=== PATIENT | male | born 1935 | race Two or more races ===

== ENCOUNTER 2020-10-23 10:43 | Emergency (ER) | payer OTHER, SELFPAY ==
--- NOTE | ~2020-10-23 | XR_ITS ---
EXAMINATION: XR hand LT min 3V DATE: 10/23/2020 11:18 INDICATION: Metacarpal pain at the left hand post fall TECHNIQUE: Posteroanterior, oblique and lateral views of the left hand were obtained. COMPARISON: None. FINDINGS: Bone alignment is normal. No fracture. 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 IMPRESSION: 1. 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 No acute osseous abnormality. Reviewed, dictated and finalized at location A. [facility] [employer] [facility] IMPRESSION: 1. 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 No acute osseous abnormalit y.
[2020-10-23 10:56] VITALS: BP 136/67; PULSE 77; RESP 18; TEMP 36.3; O2SAT 97
--- NOTE | 2020-10-23 11:15 | ED.GENADULT ---
HPI - General Adult General Chief complaint: Extremity Injury, Upper Stated complaint: Fall Time Seen by Provider: 10/23/20 11:13 Source: patient and RN notes reviewed Mode of arrival: ambulatory Limitations: no limitations History of Present Illness HPI narrative: 85-year-old [place] male presents with left hand pain and swelling for 1 day. Shadi reports it was ice on sidewalk while walking and he took a fall landing on rear-end, now has LT hand pain and swelling. Tylenol last this morning at 06:00 with relief. No numbness or tingling. No radiation of pain. No loss of mobility. Exacerbating factors consist of movement. The relieving factors is immobility and OTC pain medication. Dominant hand is the RIGHT HAND. Shadi reports slightly hitting head with fall. Denies loss of consciousness, seizure activity, syncopal episode, blurred vision, changes in vision, or dizziness. No nausea or vomiting. Tolerating po intake well. No suspected abuse. Remains active. The patient reports he have not been diagnosed with COVID-19. The patient reports he is not waiting for the results of a COVID-19 lab test. The patient reports he do not have fever, chills, weakness, or fatigue. The patient reports he do not have a new or worsening cough or shortness of breath. Denies chest pain. The patient reports he do not have any rhinorrhea, congestion, loss of taste, sore throat, abdominal pain, and diarrhea. Denies recent traveling. Denies concerns for COVID-19 or exposures been home with limited outdoor exposure except for essential household needs and return home. At this time, patient is not suspected of having COVID-19. Some parts of this dictation were generated by voice recognition software and may contain typographical and/or grammatical inaccuracies. Related Data Home Medications Medication Instructions Recorded Confirmed atorvastatin 20 mg PO DAILY 10/23/20 10/23/20 tamsulosin 0.4 mg PO DAILY 10/23/20 10/23/20 valsartan 80 mg PO DAILY 10/23/20 10/23/20 Allergies Allergy/AdvReac Type Severity Reaction Status Date / Time erythromycin base Allergy Swelling Verified 10/23/20 11:22 Review of Systems Review of Systems: Narrative: CONSTITUTIONAL: Denies fever, chills, sweats. EYES: Denies visual changes, redness, discharge. ENT: Denies rhinorrhea, congestion, sore throat, otalgia. CARDIOVASCULAR: Denies chest pain, palpitations, edema. RESPIRATORY: Denies dyspnea, wheezing, cough. GASTROINTESTINAL: Denies abdominal pain, nausea, vomiting, diarrhea. SKIN: Denies rash or itching. MUSCULOSKELETAL: Denies acute back pain or myalgia. Complains of Left hand swelling and pain. NEUROLOGIC: Denies numbness or focal weakness. PSYCHIATRIC: Denies anxiety or depression. All other systems reviewed & are unremarkable except as noted in HPI and below. [facility] Past Medical History Medical History (Updated 10/23/20 @ 11:45 by WALLY Casarez) Benign prostatic hyperplasia Hypertension Mild hypercholesterolemia Ruptured lumbar disc Surgical History Surgical History (Updated 10/23/20 @ 11:45 by WALLY Casarez) History of knee surgery Right History of shoulder surgery History of spinal surgery Due to ruptured disc Family History Family History (Updated 10/23/20 @ 11:46 by WALLY Casarez) Father , Father was overseas in [facility] Unknown family medical history Mother , Unknown mother when he was 6 years ago Unknown family medical history Social History Social History (Updated 10/23/20 @ 11:47 by WALLY Casarez) Smoking status: Never smoker Tobacco type: cigarettes Second hand tobacco smoke exposure: No Alcohol intake: current Substance use: never Living arrangements: with family Occupation/Education: retired Gender identity (if verbalized by the patient): Male Sexual Orientation (if Verbalized by the Patient): Straight or Heterosexual Comments At time of
== END 2020-10-23 11:35 | disposition home or self-care (01) ==
PROVIDERS: Emergency Provider Nurse Practitioner Family; PCP Internal Medicine
DX: M19.042 Primary osteoarthritis, left hand (principal); S63.92XA Sprain of unspecified part of left wrist and hand, initial encounter; W00.0XXA Fall on same level due to ice and snow, initial encounter; N40.0 Benign prostatic hyperplasia without lower urinary tract symptoms; I10 Essential (primary) hypertension; E78.00 Pure hypercholesterolemia, unspecified
CPT/HCPCS: 73130; 99213; G0463

== ENCOUNTER 2023-11-02 19:07 | Emergency (ER) | payer OTHER, SELFPAY ==
[2023-11-02 19:12] VITALS: BP 139/76; PULSE 73; RESP 20; TEMP 36.6; O2SAT 95
--- NOTE | 2023-11-02 19:25 | ED.MALEGU ---
HPI - Male Genitourinary General Chief complaint: Urogenital-Male Stated complaint: Poss UTI Time Seen by Provider: 11/02/23 19:25 Source: patient and family Mode of arrival: ambulatory Limitations: no limitations History of Present Illness HPI Narrative: 88-year-old male presents with complaint cough, nasal congestion, fatigue and not feeling well the past 4 days. Afebrile. Notice urinary dribbling and dysuria 4:00 p.m. today. Called his daughter to bring [facility] to [facility]. Denies abdominal pain. Patient takes Flomax for enlarged prostate. Daughter states since patient has been sick bringing him 7 up and Mucinex D. no chest pain or shortness of breath. All systems reviewed and negative except as noted above. Related Data Home Medications Medication Instructions Recorded Confirmed atorvastatin 20 mg tablet 20 mg PO DAILY 10/23/20 11/02/23 tamsulosin 0.4 mg capsule 0.4 mg PO DAILY 10/23/20 11/02/23 lisinopril 5 mg tablet 5 mg PO DAILY 11/02/23 11/02/23 metoprolol succinate 25 mg 25 mg PO HS 11/02/23 11/02/23 tablet,extended release 24 hr Allergies Allergy/AdvReac Type Severity Reaction Status Date / Time erythromycin base Allergy Swelling Verified 11/02/23 19:25 Review of Systems Review of Systems: CONSTITUTIONAL: Denies fever, chills, or sweats. Reports fatigue EYES: Denies visual changes, redness, or discharge. ENT: Reports rhinorrhea, congestion. Denies sore throat, or otalgia. CARDIOVASCULAR: Denies chest pain, palpitations, or edema. RESPIRATORY: Denies cough or dyspnea. GASTROINTESTINAL: Denies abdominal pain, nausea, vomiting, or diarrhea. GENITOURINARY: Reports dysuria, dribbling. Denies hematuria. SKIN: Denies rash or itching. MUSCULOSKELETAL: Denies back pain, joint. Reports myalgia. NEUROLOGIC: Denies headache, numbness, or weakness. PSYCHIATRIC: Denies anxiety or depression. All other systems reviewed are negative, except as documented in HPI. PEND[facility] SALE TO [facility] Past Medical History Medical History (Updated 11/02/23 @ 19:52 by Lala Oscar NP) Benign prostatic hyperplasia Hypertension Mild hypercholesterolemia Ruptured lumbar disc Surgical History Surgical History (Updated 10/23/20 @ 11:45 by WALLY Casarez) History of knee surgery Right History of shoulder surgery History of spinal surgery Due to ruptured disc Family History Family History (Updated 10/23/20 @ 11:46 by WALLY Casarez) Father , Father was overseas in [place] Unknown family medical history Mother , Unknown mother when he was 6 years ago Unknown family medical history Social History Social History (Updated 10/23/20 @ 11:47 by WALLY Casarez) Smoking status: Never smoker Tobacco type: cigarettes Second hand tobacco smoke exposure: No Alcohol intake: current Substance use: never Living arrangements: with family Occupation/Education: retired Gender identity (if verbalized by the patient): Male Sexual Orientation (if Verbalized by the Patient): Straight or Heterosexual Comments At time of signature, agree with nursing past medical, surgical, social and family history. There is no relevant family history pertinent to the presenting complaint. Exam Narrative: GENERAL: This is a well-nourished, well-developed patient, in no apparent distress. HEAD: normocephalic, atraumatic. EYES: PERRL. Sclera clear/white. Vision is grossly intact. EARS: External ears normal, auditory canals clear and without drainage, TMs normal without perforation. Hearing grossly intact. NOSE: External nose normal with no obvious nasal discharge, nares without redness, no rhinorrhea. THROAT: Mucous membranes moist, posterior pharynx clear. NECK: Neck supple, non-tender without lymphadenopathy, masses or thyromegaly. CARDIOVASCULAR: Regular rate and rhythm without murmurs, gallops, or rubs. RESPIRATORY: Clear to auscultation. Breath sounds equal bilaterally. No whe
== END 2023-11-02 19:56 | disposition home or self-care (01) ==
PROVIDERS: Emergency Provider Nurse Practitioner Family
DX: U07.1 COVID-19 (principal); R33.9 Retention of urine, unspecified; I10 Essential (primary) hypertension; Z79.899 Other long term (current) drug therapy
CPT/HCPCS: 81003; 87426; 87804; 99213; G0463